=== PATIENT | male | born 1960 | race Caucasian/White ===

== ENCOUNTER 2016-07-05 15:49 | Observation (INO) | payer OTHER ==
--- NOTE | ~2016-07-05 | EGD ---
EGD REPORT [facility] [address] [place]. [address] NAME: TAYA BORDEN : 60 STATUS : ADM Maria Luisa PAT#: [id number] AGE: 55 ADM/REG DATE : 07/05/16 MR#: [id number] REPORT SERV DATE: 07/07/16 DICTATED BY: ANTONIO PARKER DATE: 07/07/16 REPORT STATUS : Draft [facility] DATE: 07/07/16 Endoscopy Center Patient Name: Taya Borden Date of : 1960 Attending MD: ANTONIO PARKER MD Procedure Date No Time: 07/07/2016 Procedure: Upper GI endoscopy Indications: Epigastric abdominal pain, Iron deficiency anemia secondary to chronic blood loss, Heartburn, Melena, Chest pain (non cardiac) Referring MD: VINNIE BLANDON Medicines: Propofol per Anesthesia Complications: No immediate complications. Estimated blood loss: None. Procedure: Pre-Anesthesia Assessment: - After reviewing the risks and benefits, the patient was deemed in satisfactory condition to undergo the procedure. - Prior to the procedure, a History and Physical was performed, and patient medications and allergies were reviewed. The patient's tolerance of previous anesthesia was also reviewed. The risks and benefits of the procedure and the sedation options and risks were discussed with the patient. All questions were answered, and informed consent was obtained. Prior Anticoagulants: The patient has taken no previous anticoagulant or antiplatelet agents. ASA Grade Assessment: III - A patient with severe systemic disease. After reviewing the risks and benefits, the patient was deemed in satisfactory condition to undergo the procedure. After obtaining informed consent, the endoscope was passed under direct vision. Throughout the procedure, the patient's blood pressure, pulse, and oxygen saturations were monitored continuously. The GIF [id number] was introduced through the mouth, and advanced to the third part of duodenum. The upper GI endoscopy was accomplished without difficulty. The patient tolerated the procedure well. Findings: The Z-line was irregular. Biopsies were taken with a cold forceps for histology. Estimated blood loss: none. There was a small amount of whitish exudate and debris in the mid-esophagus. Brushings were obtained in the middle third of the esophagus for MARY prep. Estimated blood loss: none. Multiple non-bleeding erosions were found in the prepyloric region of EGD REPORT [place] [id number] [facility] [place]. [address] NAME: TAYA BORDEN : 60 STATUS : ADM Maria Luisa PAT#: [id number] AGE: 55 ADM/REG DATE : 07/05/16 MR#: [id number] REPORT SERV DATE: 07/07/16 DICTATED BY: ANTONIO PARKER DATE: 07/07/16 REPORT STATUS : Draft TRANSCRIBED BY: [facility] DATE: 07/07/16 the stomach. There were no stigmata of recent bleeding. Biopsies were taken with a cold forceps for histology. Estimated blood loss: none. The gastroesophageal junction (on retroflexion) was normal. The examined duodenum was normal. Impression: - Z-line irregular,. Biopsied. - Erosive gastropathy. Biopsied. - Normal gastroesophageal junction. - Normal examined duodenum. - GERD with atypical chest pain and negative cardiac evaluation. Recommendation: - Discharge patient to home. - Regular diet. - Increase Prilosec (omeprazole) from 20 mg once daily to 40 mg twice daily before meal for 1 month and then decrease to 40 mg once daily before meal for maintenance. - Discontinue Excedrin and other NSAID medications. - We will arrange an elective outpatient colonscopy for screening, KAYLA, and melena. Procedure Code(s): --- Professional --- 32127, Esophagogastroduodenoscopy, flexible, transoral; with biopsy, single or multiple Diagnosis Code(s): --- Professional --- K22.8, Other specified diseases of esophagus K31.9, Disease of stomach and duodenum, unspecified K21.9, Gastro-esophageal reflux disease without esophagitis R10.13, Epigastric pain D50.0, Iron deficiency anemia secondary to blood loss (chronic) R12, Heartburn K92.1, Melena R07.89, Other chest pain CPT copyright 2013 [employer]. All rights reserved. The codes documented in this report are preliminary and upon parts sales counterperson review may be revised to meet current compliance requirements. ANTONIO PARKER MD 07/07/2016 1:58 PM This report has been signed electronically. EGD REPORT [facility] [address] [place]. [address] NAME: TAYA BORDEN : 60 STATUS : ADM Maria Luisa PAT#: [id number] AGE: 55 ADM/REG DATE : 07/05/16 MR#: [id number] REPORT SERV DATE: 07/07/16 DICTATED BY: ANTONIO PARKER DATE: 07/07/16 REPORT STATUS : Draft TRANSCRIBED BY: [facility] DATE: 07/07/16 Number of Addenda: 0 Note Initiated On: 07/07/2016 1:38 PM Scope Withdrawal Time 0 hours 0 minutes 0 seconds [address] [place] [address]
--- NOTE | ~2016-07-05 | CN ---
Consultation Report [address] [place]. [address] NAME: TAYA BORDEN : 60 STATUS : ADM Maria Luisa PAT#: [id number] AGE: 55 ADM/REG DATE : 07/05/16 MR#: [id number] REPORT SERV DATE: 07/07/16 DICTATED BY: PRUDENCIO HENRY DATE: 07/06/16 REPORT STATUS : Draft TRANSCRIBED BY: MODL DATE: 07/06/16 CONSULTATION NOTE DATE OF CONSULTATION: 07/06/2016 This is a 55-year-old white male I am seeing for Dr. Amadeo Hernandez, admitted with chest pain. Stress test negative, echo results pending. CTA showed negative PE but did show 3.9 cm ascending thoracic aneurysm, and apparently found to have iron deficiency anemia as well with dark stools. No bowel movement since admission but has been having those for a couple of weeks. PAST MEDICAL HISTORY: History of hypertension, has had appendectomy, shoulder repair, and carpal tunnel. SOCIAL HISTORY: Former smoker. Former ETOH. Has history of migraines, takes aspirin. LABORATORY DATA: White count 9600, hemoglobin 12.2, MCV 78. Also history of GERD. Denies nausea. He does take some Prilosec for that as an outpatient. PHYSICAL EXAMINATION: GENERAL: Well-developed, well nourished white male, alert and oriented x3. HEENT: Anicteric. CHEST: Clear. HEART: Regular rate and rhythm. No murmur or gallop. ABDOMEN: Soft. Tender in the epigastrium. Bowel sounds present. EXTREMITIES/NEUROLOGIC: Grossly intact. ASSESSMENT: 1. Chest pain. Negative CV workup. Upper abdominal pain, gastroesophageal reflux disease. History of aspirin, dark stools. BUN increased to 27, MCV 78. 2. Migraines. 3. Hypertension. 4. A 3.9 cm ascending thoracic aneurysm. SUGGESTION: 1. Schedule for EGD. 2. Continue with PPI. We will schedule this per Dr. Hernandez. Risks and benefits were explained to the patient, and he consented to the above. Thank you very much for the consultation. Consultation Report [address] [place]. [address] NAME: TAYA BORDEN : 60 STATUS : ADM Maria Luisa PAT#: [id number] AGE: 55 ADM/REG DATE : 07/05/16 MR#: [id number] REPORT SERV DATE: 07/07/16 DICTATED BY: PRUDENCIO HENRY DATE: 07/06/16 REPORT STATUS : Draft TRANSCRIBED BY: MODL DATE: 07/06/16 DC/MODL Prudencio Henry M.D. / [id number] CC: Veronica Astorga, MSN, FOUNDRY PROCESS ENGINEER-BC Amadeo Hernandez M.D.
--- NOTE | ~2016-07-05 | HP ---
History And Physical [place] [address] [place]. [address] NAME: TAYA BORDEN : 60 STATUS : ADM Maria Luisa PAT#: [id number] AGE: 55 ADM/REG DATE : 07/05/16 MR#: [id number] REPORT SERV DATE: 07/06/16 DICTATED BY: SHEFALI HARDWICK DATE: 07/06/16 REPORT STATUS : Draft TRANSCRIBED BY: MODL DATE: 07/06/16 DATE OF ADMISSION: 07/05/2016 CHIEF COMPLAINT: Chest pain. HISTORY OF PRESENT ILLNESS: This is a 55-year-old male with no prior medical history of coronary artery disease. He describes a "12/10" chest pain to the mid sternum radiating to the left arm accompanied with shortness of breath yesterday morning while mopping. He denies any episodes of prior chest pains. He came to our emergency department for further evaluation and the chest pain was decreased to a 6/10 in intensity with IV morphine. His chest pain has been managed in the chest pain observation unit through the night with Percocet as well as nitroglycerin and some additional IV morphine and is currently 3/10 in severity. There is no specific relief according to the patient with nitroglycerin, although he did develop a headache from it. His CTA of the chest performed in the emergency department that showed no evidence of PE. There was mild fusiform aneurysmal change of the ascending thoracic aneurysm measuring 3.9 cm in diameter and some mild cardiomegaly noted. The patient's initial CBC indicated what appears to be some iron deficiency anemia. Upon questioning, the patient admits to black colored stools over the last couple weeks. He has a history of hemorrhoids, but no bloody stool mentioned. The patient has also been having some problems with nausea and dry heaving through the night, likely secondary to IV morphine. Denies any recent fever, cough, or chills. Denies personal history for OK, CVA, PE, or DVT. His blood pressure is elevated in the emergency department and is currently 173/103. MEDICAL HISTORY: 1. Hypertension. 2. Migraine headaches. 3. Allergic rhinitis. SURGICAL HISTORY: 1. Appendectomy at age 17. 2. Right shoulder surgery. 3. Carpal tunnel surgery. This is to the right lower extremity after a pit bull attack approximately one year ago. HOME MEDICATIONS: Benadryl 50 at bedtime, Benicar 40 daily, Prilosec 20 daily, Paxil 10 daily, Ambien 10 at bedtime. 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 He smokes. He has a history of zltlx-uaqk-lux-day smoking for five years, quit 37 years ago. History of alcohol abuse, quit 30 years ago; and history of illicit drug use with PCP and cocaine, quit in 1979. History And Physical [address] [address] NAME: TAYA BORDEN : 60 STATUS : ADM Maria Luisa PAT#: [id number] AGE: 55 ADM/REG DATE : 07/05/16 MR#: [id number] REPORT SERV DATE: 07/06/16 DICTATED BY: SHEFALI HARDWICK DATE: 07/06/16 REPORT STATUS : Draft TRANSCRIBED BY: MARIALUISA DATE: 07/06/16 FAMILY HISTORY: Negative for premature cardiovascular disease among first-degree relatives. REVIEW OF SYSTEMS: Negative except as indicated above. PHYSICAL EXAMINATION: VITAL SIGNS: Blood pressure 173/103, heart rate 85, temperature 97.6, pulse oximetry 99% on room air. BMI 31.2. GENERAL: Well developed, well nourished, in no acute distress. HEENT: Anicteric. Normal EOM. Head normocephalic. PERRLA, no xanthelasma. NECK: Supple. No JVD. Carotids normal without bruits. LUNGS: Clear to auscultation bilaterally anterior and posterior. Respirations even and unlabored. CARDIAC: S1, S2. Regular rate and rhythm. Holosystolic murmur 2/6 auscultated best at the apex. ABDOMEN: Normal bowel sounds. Soft and nontender to palpation. No masses or organomegaly. EXTREMITIES: No peripheral edema. DP/PT and radial pulses palpable bilaterally. No clubbing or cyanosis. SKIN: Warm and dry. Normal turgor. No pallor or cyanosis. MUSCULOSKELETAL: Moving all extremities x4. Normal muscle strength. NEURO/PSYCH: Alert and oriented with appropriate affect. LABORATORY DATA: White blood count 9.6, hemoglobin 12.2, hematocrit 36.7, MCV 78.3, RDW 16.3. Sodium 141, potassium 4.0, BUN 27, creatinine 1.22. Troponin less than 0.02 x3. Chest x-ray showed no acute cardiopulmonary disease. CTA of the chest showing no evidence of pulmonary embolus. Mild fusiform aneurysmal change to the ascending thoracic aorta at 3.9 cm diameter, cardiomegaly. EKG interpreted by myself indicate normal sinus rhythm with evidence of LVH and repolarization abnormality with early repolarization abnormalities. These are seen on EKGs #3 and 4. ASSESSMENT AND PLAN: 1. Atypical chest pain that started with exertion but has not resolved in this 55-year-old male with cardiovascular risk factors of hypertension and prior tobacco use. He has been observed overnight in the chest pain observation unit, and troponins are negative. An EKG revealed LVH with early repolarization. Recommend proceeding with a nuclear stress test today to further differentiate any ischemic etiology to his chest pain. 2. Systolic murmur. There is no prior history of murmur. We will plan to check an echocardiogram either today or as an outpatient. 3. Hypertension with evidence of LVH. Blood pressure has been elevated during admission. He is compliant with his Benicar 40 mg daily. We will add amlodipine after stress testing and continue on discharge. I have instructed the patient to take his blood pressure twice daily and record it to bring to his primary care physician follow up in the one-two weeks which will be scheduled. 4. Iron deficiency anemia with reported black stools over the last couple weeks. I will plan to start a proton pump inhibitor if the patient is not already on one and arrange followup with a local film sound coordinator within the next week. The patient will likely need to have colonoscopy. I have instructed the patient to avoid any NSAIDs. History And Physical [address] [address] NAME: TAYA BORDEN : 60 STATUS : ADM Maria Luisa PAT#: [id number] AGE: 55 ADM/REG DATE : 07/05/16 MR#: [id number] REPORT SERV DATE: 07/06/16 DICTATED BY: SHEFALI HARDWICK DATE: 07/06/16 REPORT STATUS : Draft TRANSCRIBED BY: MODL DATE: 07/06/16 5. Ascending thoracic aneurysm measuring 3.9 cm. Recommend followup with a CT of the chest in the next year or so. I have educated the patient regarding the importance of blood pressure control. DBT/MODL Shefali Hardwick NP / [id number] CC: Veronica Astorga, MSN, FIRST FRONT VENTILATOR-BC Ranulfo Ceron M.D.
[2016-07-05 12:53] LABS: BASOPHILS 0.3 %; BASOPHILS ABSOLUTE 0.03 10/3/uL (0.0-0.16); EOSINOPHILS 1.7 %; EOSINOPHILS ABSOLUTE 0.16 10/3/uL (0.0-0.53); ER CBC TAT 0 Hrs 05 Mins; HEMATOCRIT 36.7 % (40.0-51.0); HEMOGLOBIN 12.2 g/dL (13.6-17.8); IMMATURE GRANULOCYTES 0.2 %; IMMATURE GRANULOCYTES ABSOLUTE 0.02 10/3/uL (0.0-0.11); LYMPHOCYTES ABSOLUTE 1.64 10/3/uL (0.67-4.30); MEAN CORPUS HGB CONC 33.2 g/dL (32.0-36.0); MEAN CORPUSCULAR VOLUME 78.3 fL (80-100); MEAN PLATELET VOLUME 9.7 fL (9.2-13.0); MONOCYTES 10.2 %; MONOCYTES ABSOLUTE 0.98 10/3/uL (0.21-1.20); NEUTROPHILS 70.6 %; NEUTROPHILS ABSOLUTE 6.79 10/3/uL (2.02-8.40); PLATELET COUNT 311 10/3/uL (150-400); RBC DISTRIBUTION WIDTH 16.3 % (12.0-16.0); RED CELL COUNT 4.69 10/6/uL (4.7-6.1); WHITE BLOOD CELLS 9.6 10/3/uL (4.5-10.5)
[2016-07-05 12:54] LABS: MANUAL DIFF NO %
[2016-07-05 13:00] LABS: PARTIAL THROMBO TIME 25.4 SEC (22.5-37.2); PROTIME (NOT ORD) 13.1 SEC (12.0-14.5)
[2016-07-05 13:09] LABS: BUN (BLOOD UREA NITROGEN) 27 MG/DL (6-23); CALCIUM, SERUM 8.9 MG/DL (8.5-10.4); CHEST PAIN PROFILE TAT 0 Hrs 21 Mins; CHLORIDE, SERUM 105 MMOL/L (96-112); CO2 (CARBON DIOXIDE) 26 MMOL/L (24-34); CREATININE 1.22 MG/DL (0.70-1.30); GFR AFRICAN AMERICAN 77 ML/MIN (>=60); GFR NON AFRICAN AMERICAN 66 ML/MIN (>=60); GLUCOSE, SERUM 109 MG/DL (60-99); SODIUM, SERUM 141 MMOL/L (135-148); TROPONIN I <0.02 NG/ML (<0.05)
[~2016-07-05 15:49] MED LIST: AMB10 PO; BEN25 PO; BENICAR40 PO; PAX10 PO; PRILO PO
[2016-07-07] MEDS ORDERED: PRILOSEC40 MG PO (16:12)
[2016-07-07] MEDS ORDERED: NORV5 PO (16:14)
== END 2016-07-07 16:15 | disposition home or self-care (01) ==
LOC: ER 15:49 → CDU1 15:55 → CDU2 16:19
PROVIDERS: Emergency Medicine; Internal Medicine Gastroenterology
PROC: 0DB68ZX Excision of Stomach, Via Natural or Artificial Opening Endoscopic, Diagnostic (ICD-10-PCS; principal; 2016-07-07 13:44)
DX: K25.3 Acute gastric ulcer without hemorrhage or perforation (principal); K22.8 Other specified diseases of esophagus; K31.9 Disease of stomach and duodenum, unspecified; K21.9 Gastro-esophageal reflux disease without esophagitis; R07.89 Other chest pain; I11.0 Hypertensive heart disease with heart failure; I50.1 Left ventricular failure, unspecified; I71.2 Thoracic aortic aneurysm, without rupture; F41.9 Anxiety disorder, unspecified; G43.909 Migraine, unspecified, not intractable, without status migrainosus; J30.9 Allergic rhinitis, unspecified; Z87.891 Personal history of nicotine dependence; Z90.49 Acquired absence of other specified parts of digestive tract; Z98.890 Other specified postprocedural states; Z88.2 Allergy status to sulfonamides; Z79.899 Other long term (current) drug therapy
CPT/HCPCS: 71010; 71275; 78452; 80048; 83690; 83735; 84484; 85025; 85610; 85730; 87210; 88305; 88342; 93005; 93017; 93306; 96374; 96375; 96376; 99285; A9270-GY; A9502; C9113; G0378; J0360; J2405; J2800; Q9967